=== PATIENT | female | born 1925 | race Caucasian/White ===

== ENCOUNTER → 2016-06-06 | Outpatient (CLI) | payer BC, MEDICARE ==
[~2016-06-06] MED LIST: ADVAIR 5001 DISK W/D PO; ALBUTEROL17 GM INH; COMBIVENT INH14.7 GM INH; COZAAR PO; HCTZ PO; NORVASC PO; SINGULAIR PO; VICODIN 5/500 T1 TAB PO; ZOLOFT PO
[2016-06-06 12:32] LABS: INR 1.2; PROTHROMBIN TIME (PATIENT) 12.2 SECONDS (9.6-11.5)
== END | disposition home or self-care (01) ==
LOC: CLAB 11:47
PROVIDERS: Internal Medicine Interventional Cardiology
DX: Z51.81 Encounter for therapeutic drug level monitoring (principal); I48.0 Paroxysmal atrial fibrillation; Z79.01 Long term (current) use of anticoagulants
CPT/HCPCS: 36415; 85610

== ENCOUNTER → 2016-07-02 | Outpatient (CLI) | payer BC, MEDICARE ==
[2016-07-02 12:43] LABS: INR 1.7
[2016-07-02 12:44] LABS: PROTHROMBIN TIME (PATIENT) 18.4 SECONDS (9.6-11.5)
== END | disposition home or self-care (01) ==
LOC: CLAB 11:56
PROVIDERS: Internal Medicine Interventional Cardiology
DX: Z51.81 Encounter for therapeutic drug level monitoring (principal); I48.0 Paroxysmal atrial fibrillation; Z79.01 Long term (current) use of anticoagulants
CPT/HCPCS: 36415; 85610

== ENCOUNTER → 2016-07-25 | Outpatient (CLI) | payer BC, MEDICARE ==
[2016-07-25 12:45] LABS: INR 1.5; PROTHROMBIN TIME (PATIENT) 15.6 SECONDS (9.6-11.5)
== END | disposition home or self-care (01) ==
LOC: CLAB 12:01
PROVIDERS: Internal Medicine Interventional Cardiology
DX: Z51.81 Encounter for therapeutic drug level monitoring (principal); I48.0 Paroxysmal atrial fibrillation; Z79.01 Long term (current) use of anticoagulants
CPT/HCPCS: 36415; 85610

== ENCOUNTER → 2016-08-07 | Outpatient (CLI) | payer BC, MEDICARE ==
[2016-08-07 12:50] LABS: INR 1.8; PROTHROMBIN TIME (PATIENT) 19.2 SECONDS (9.6-11.5)
== END | disposition home or self-care (01) ==
LOC: CLAB 12:01
PROVIDERS: Internal Medicine Interventional Cardiology
DX: Z51.81 Encounter for therapeutic drug level monitoring (principal); I48.0 Paroxysmal atrial fibrillation; Z79.899 Other long term (current) drug therapy
CPT/HCPCS: 36415; 85610

== ENCOUNTER → 2016-08-22 | Outpatient (CLI) | payer BC, MEDICARE ==
[2016-08-22 11:49] LABS: INR 2.6; PROTHROMBIN TIME (PATIENT) 28.1 SECONDS (10.0-11.7)
== END | disposition home or self-care (01) ==
LOC: CLAB 11:07
PROVIDERS: Internal Medicine Interventional Cardiology
DX: Z51.81 Encounter for therapeutic drug level monitoring (principal); I48.0 Paroxysmal atrial fibrillation; Z79.899 Other long term (current) drug therapy
CPT/HCPCS: 36415; 85610